=== PATIENT | male | born 1995 | race African-American/Black ===

== ENCOUNTER 2021-11-08 10:59 | Inpatient (IN) ==
[2021-11-08] MEDS ORDERED: levETIRAcetam 500 MG/5 ML VIAL IV ONE (11:01)
[2021-11-08] MEDS ORDERED: LORazepam 2 MG/1 ML VIAL ONE (11:02)
[2021-11-08] MEDS ORDERED: LORazepam 2 MG/1 ML VIAL IV STA ×3 (11:03→13:26)
[2021-11-08] MEDS ORDERED: ACETAMINOPHEN 650 MG SUPP RECTAL STA (11:12)
[2021-11-08] MEDS ORDERED: METOPROLOL TARTRATE 5 MG/5 ML VIAL IV STA (11:12)
[2021-11-08 11:25] LABS: Basophils % 0.4 % (0.0-0.8); Eosinophils % 0.1 % (0.00-10.9); Hematocrit 48.3 VOL% (42.0-52.0); Hemoglobin 15.2 GM/DL (14.0-18.0); Immature Granulocytes % 1.3 %; Immature Granulocytes Absolute 0.11 #; Lymphocytes # 2.2 10*3/uL (1.4-4.0); Lymphocytes % 26.1 % (21.2-54.2); Mean Corpuscular HGB Conc 31.5 GM/DL (32-36); Mean Corpuscular Volume 87.2 FL (87-102); Mean Platelet Volume 10.9 FL (9.6-12.0); Monocytes # 0.3 10*3/uL (0.11-0.8); Monocytes % 3.9 % (1.7-12.7); Neutrophils % 68.2 % (38.7-73.9); Platelet Count 245 T/CUMM (130-400); Red Blood Count 5.54 MC/CUMM (3.8-5.5); Red Cell Distribution Width 14.1 % (9.3-17.3); White Blood Count 8.2 T/CUMM (4-12)
[2021-11-08] MEDS ORDERED: SODIUM CHLORIDE 0.9% 1,000 ML IV STA (11:32)
[2021-11-08 11:36] LABS: Bilirubin,Urine Negative (Negative); Blood, Urine Moderate mg/dL (Negative); Glucose,Urine (UA) Negative (Negative); Ketones,Urine Negative (Negative); Mucus,Urine Occasional /LPF (Occasional); Nitrite,Urine Negative (Negative); Protein,Urine 100 mg/dL (Negative); RBC,Urine 1 /HPF (0-4); Urine Appearance Clear (Clear); Urine Color Yellow (Yellow); Urine Specific Gravity > 1.030 (1.001-1.035); Urine pH 5.5 (4.5-8.0)
[2021-11-08 11:37] LABS: Urine Urobilinogen 0.2 eU/dL (<2.0)
[2021-11-08 11:44] LABS: Acetaminophen < 2.0 UG/ML (10-30); Salicylate < 2.8 MG/DL (2.8-20)
[2021-11-08 11:45] LABS: Barbiturates Screen,Urine Negative (Negative); Benzodiazepines Screen,Urine Negative (Negative); Cannabinoid Screen,Urine Negative (Negative); Opiate Screen,Urine Negative (Negative); Phencyclidine Screen,Urine Negative (Negative)
[2021-11-08 11:48] LABS: Alanine Aminotransferase 23 U/L (16-61); Albumin 4.3 G/DL (3.4-5.0); Alkaline Phosphatase 80 U/L (45-117); Aspartate Amino Transferase 25 U/L (0-37); Bilirubin,Total < 0.39 MG/DL (0.20-1.00); Blood Urea Nitrogen 15 MG/DL (7-18); Calcium 9.1 MG/DL (8.5-10.1); Carbon Dioxide 12 MMOL/L (21-32); Chloride 105 MMOL/L (98-107); Glucose 142 MG/DL (74-106); Osmolality,Calculated 277.7 MOS/KG (273-304); Potassium 4.3 MMOL/L (3.5-5.1); Sodium 138 MMOL/L (136-145); Total Protein 8.5 G/DL (6.4-8.2)
[2021-11-08] MEDS ORDERED: VANCOMYCIN INJ 1,000 MG in SODIUM CHLORIDE 0.9% 250 ML IV SCH (12:00)
[2021-11-08] MEDS ORDERED: SODIUM CHLORIDE 0.9% 2,200 ML IV ONE (12:00)
[2021-11-08] MEDS ORDERED: SODIUM CHLORIDE 0.9% 500 ML IV STA (12:28)
[2021-11-08] MEDS ORDERED: PIPERACILLIN/TAZOBACTAM 3,375 MG in SODIUM CHLORIDE 0.9% 100 ML IV SCH (13:00)
[2021-11-08] MEDS ORDERED: ONDANSETRON 4 MG/2 ML VIAL IV PRN (13:43)
[2021-11-08] MEDS ORDERED: VANCOMYCIN INJ 1,250 MG in SODIUM CHLORIDE 0.9% 250 ML IV SCH (14:00)
[2021-11-08] MEDS ORDERED: GLUCAGON 1 MG VIAL IM PRN (14:42)
[2021-11-08] MEDS ORDERED: SODIUM BICARB INJ 150 MEQ in DEXTROSE 5% 1,000 ML IV SCH (15:00)
[2021-11-08] MEDS ORDERED: ZIPRASIDONE 20 MG/1 ML VIAL IM PRN (15:46)
[2021-11-08] MEDS ORDERED: LORazepam 2 MG/1 ML VIAL IV ONE (15:46)
[2021-11-08] MEDS ORDERED: SUCCINYLCHOLINE 200 MG/10 ML VIAL ONE (17:16)
[2021-11-08] MEDS ORDERED: ETOMIDATE 20 MG/10 ML VIAL IV ONE ×2 (17:16→17:23)
[2021-11-08 17:18] LABS: Albumin 3.8 G/DL (3.4-5.0); Bilirubin,Total 0.5 MG/DL (0.20-1.00); Calcium 7.9 MG/DL (8.5-10.1); Osmolality,Calculated 274.7 MOS/KG (273-304); Potassium 4.2 MMOL/L (3.5-5.1); Total Protein 7.3 G/DL (6.4-8.2)
[2021-11-08] MEDS ORDERED: SUCCINYLCHOLINE 200 MG/10 ML VIAL IV ONE (17:25)
[2021-11-08 18:05] LABS: Arterial Base Excess iSTAT -1 MMOL/L (-2.5-2.5); Arterial Bicarbonate iSTAT 24.3 MMOL/L (20-26); Arterial O2 Saturation iSTAT 100 % (95-100); Arterial PCO2 iSTAT 42 MM HG (35-48); Arterial PO2 iSTAT 276 MM HG (80-95); Arterial Total CO2 iSTAT 26 MMO/L (23-27); Arterial pH iSTAT 7.371 (7.35-7.45)
[2021-11-08] MEDS: LORazepam 2 MG/1 ML VIAL IV PRN ×2 (18:14→20:10)
[2021-11-08] MEDS: PANTOPRAZOLE 40 MG VIAL IV SCH (18:30)
[2021-11-08] MEDS: ENOXAPARIN 40 MG/0.4 ML SYRINGE SUBCUT SCH (18:30)
[2021-11-08] MEDS: cefTRIAXone 1,000 MG in SODIUM CHLORIDE 0.9% 100 ML IV SCH (18:50)
[2021-11-08] MEDS: LACTATED RINGERS 1,000 ML IV SCH (18:50)
[2021-11-08] MEDS: DEXTROSE 10% 250 ML BAG IV PRN (23:07)
[2021-11-09] MEDS: LORazepam 2 MG/1 ML VIAL IV PRN ×5 (02:03→09:00)
[2021-11-09] MEDS: LACTATED RINGERS 1,000 ML IV SCH (02:29)
[2021-11-09 04:02] LABS: Basophils % 0.1 % (0.0-0.8); Hematocrit 42.6 VOL% (42.0-52.0); Hemoglobin 13.6 GM/DL (14.0-18.0); Immature Granulocytes % 0.4 %; Immature Granulocytes Absolute 0.04 #; Lymphocytes # 1.6 10*3/uL (1.4-4.0); Lymphocytes % 16.5 % (21.2-54.2); Mean Corpuscular HGB Conc 31.9 GM/DL (32-36); Mean Corpuscular Volume 85.9 FL (87-102); Mean Platelet Volume 11.5 FL (9.6-12.0); Monocytes # 0.8 10*3/uL (0.11-0.8); Monocytes % 7.6 % (1.7-12.7); Neutrophils % 75.4 % (38.7-73.9); Platelet Count 164 T/CUMM (130-400); Red Blood Count 4.96 MC/CUMM (3.8-5.5); Red Cell Distribution Width 14.1 % (9.3-17.3); White Blood Count 9.8 T/CUMM (4-12)
[2021-11-09 04:02] LABS: Arterial Base Excess iSTAT 0 MMOL/L (-2.5-2.5); Arterial O2 Saturation iSTAT 99 % (95-100); Arterial PCO2 iSTAT 41 MM HG (35-48); Arterial PO2 iSTAT 151 MM HG (80-95); Arterial Total CO2 iSTAT 26 MMO/L (23-27); Arterial pH iSTAT 7.399 (7.35-7.45)
[2021-11-09 04:19] LABS: Albumin 3.5 G/DL (3.4-5.0); Bilirubin,Total 0.6 MG/DL (0.20-1.00); Calcium 8.5 MG/DL (8.5-10.1); Osmolality,Calculated 277.3 MOS/KG (273-304); Potassium 3.6 MMOL/L (3.5-5.1)
[2021-11-09] MEDS: DEXTROSE 10% 250 ML BAG IV PRN (04:50)
[2021-11-09] MEDS: DEXTROSE 5% LACTATED RINGERS 1,000 ML IV SCH ×3 (05:05→18:00)
[2021-11-09] MEDS: DEXMEDETOMIDINE 200 MCG in SODIUM CHLORIDE 0.9% 48 ML IV PRN ×3 (08:45→19:40)
[2021-11-09] MEDS: VANCOMYCIN INJ 1,000 MG in SODIUM CHLORIDE 0.9% 250 ML IV SCH ×2 (10:00→21:23)
[2021-11-09] MEDS ORDERED: HALOPERIDOL 5 MG/ML AMP IM ONE (11:00)
[2021-11-09] MEDS ORDERED: diphenhydrAMINE 50 MG/1 ML VIAL IV ONE (11:00)
[2021-11-09] MEDS ORDERED: LORazepam 2 MG/1 ML VIAL IV ONE (11:00)
[2021-11-09] MEDS: ENOXAPARIN 40 MG/0.4 ML SYRINGE SUBCUT SCH (15:43)
[2021-11-09] MEDS: cefTRIAXone 1,000 MG in SODIUM CHLORIDE 0.9% 100 ML IV SCH (15:44)
[2021-11-09] MEDS: PANTOPRAZOLE 40 MG VIAL IV SCH (15:44)
[2021-11-09] MEDS: DIVALPROEX 500 MG TABLET PO SCH (21:23)
[2021-11-10] MEDS: DEXTROSE 5% LACTATED RINGERS 1,000 ML IV SCH ×2 (00:53→10:12)
[2021-11-10] MEDS: DEXMEDETOMIDINE 200 MCG in SODIUM CHLORIDE 0.9% 48 ML IV PRN (03:00)
[2021-11-10 04:26] LABS: Basophils % 0.2 % (0.0-0.8); Eosinophils # 0.1 10*3/uL (0.0-0.87); Eosinophils % 1.1 % (0.00-10.9); Hematocrit 35.8 VOL% (42.0-52.0); Lymphocytes # 1.8 10*3/uL (1.4-4.0); Mean Corpuscular HGB Conc 32.1 GM/DL (32-36); Mean Corpuscular Volume 85.2 FL (87-102); Mean Platelet Volume 11.1 FL (9.6-12.0); Monocytes # 0.5 10*3/uL (0.11-0.8); Monocytes % 10.1 % (1.7-12.7); Neutrophils % 48.6 % (38.7-73.9); Platelet Count 134 T/CUMM (130-400); Red Cell Distribution Width 13.5 % (9.3-17.3)
[2021-11-10 04:28] LABS: Hemoglobin 11.5 GM/DL (14.0-18.0); White Blood Count 4.5 T/CUMM (4-12)
[2021-11-10 04:48] LABS: Calcium 8.5 MG/DL (8.5-10.1); Osmolality,Calculated 280.1 MOS/KG (273-304); Phosphorous 3.4 MG/DL (2.5-4.9); Potassium 3.6 MMOL/L (3.5-5.1)
[2021-11-10 05:06] LABS: Calcium 8.3 MG/DL (8.5-10.1); Potassium 3.8 MMOL/L (3.5-5.1)
[2021-11-10] MEDS ORDERED: MAGNESIUM SULF RIDER 4 GM/100 ML PREMIX IV PRN (07:28)
[2021-11-10] MEDS ORDERED: POTASSIUM CHLORIDE 20 MEQ TABLET PO PRN (07:28)
[2021-11-10] MEDS ORDERED: MAGNESIUM SULF RIDER 2 GM/50 ML PREMIX IV PRN (07:28)
[2021-11-10] MEDS: DIVALPROEX 500 MG TABLET PO SCH ×2 (09:30→23:42)
[2021-11-10] MEDS: VANCOMYCIN INJ 1,000 MG in SODIUM CHLORIDE 0.9% 250 ML IV SCH ×2 (10:13→23:43)
[2021-11-10] MEDS ORDERED: DIVALPROEX 500 MG TABLET PO SCH (12:30)
[2021-11-10] MEDS: ENOXAPARIN 40 MG/0.4 ML SYRINGE SUBCUT SCH (14:29)
[2021-11-10] MEDS: cefTRIAXone 1,000 MG in SODIUM CHLORIDE 0.9% 100 ML IV SCH (14:29)
[2021-11-11 04:24] LABS: Basophils % 0.2 % (0.0-0.8); Eosinophils # 0.1 10*3/uL (0.0-0.87); Hematocrit 38.9 VOL% (42.0-52.0); Hemoglobin 12.7 GM/DL (14.0-18.0); Immature Granulocytes % 0.4 %; Immature Granulocytes Absolute 0.02 #; Lymphocytes # 1.5 10*3/uL (1.4-4.0); Lymphocytes % 29.1 % (21.2-54.2); Mean Corpuscular HGB Conc 32.6 GM/DL (32-36); Mean Corpuscular Volume 83.7 FL (87-102); Mean Platelet Volume 11.2 FL (9.6-12.0); Monocytes # 0.5 10*3/uL (0.11-0.8); Monocytes % 9.9 % (1.7-12.7); Neutrophils % 59.4 % (38.7-73.9); Platelet Count 145 T/CUMM (130-400); Red Blood Count 4.65 MC/CUMM (3.8-5.5); Red Cell Distribution Width 13.1 % (9.3-17.3); White Blood Count 5.3 T/CUMM (4-12)
[2021-11-11 04:53] LABS: Calcium 8.1 MG/DL (8.5-10.1); Osmolality,Calculated 275.4 MOS/KG (273-304); Potassium 3.3 MMOL/L (3.5-5.1)
[2021-11-11] MEDS ORDERED: POTASSIUM CHLORIDE 20 MEQ TABLET PO ONE (08:04)
[2021-11-11] MEDS ORDERED: MAGNESIUM SULF RIDER 2 GM/50 ML PREMIX IV ONE (08:04)
[2021-11-11] MEDS: DIVALPROEX 500 MG TABLET PO SCH (08:35)
[2021-11-11] MEDS ORDERED: levETIRAcetam 500 MG TABLET PO SCH (09:00)
[2021-11-11] MEDS ORDERED: amLODIPine 5 MG TABLET PO SCH (09:00)
[2021-11-11 14:18] VITALS: BP 146/89
== END 2021-11-11 15:10 | DRG 100 ==
LOC: N.ED 10:59 → SUATTDRO 13:41 → N.EDINP 13:41 → N.ICU 14:21 → N.3W 11-10 14:21
PROVIDERS: ADMIT Family Medicine; ATTEND Internal Medicine